=== PATIENT | male | born 1945 | race Caucasian/White ===

== ENCOUNTER 2021-06-19 14:34 | Inpatient (IN) | payer OTHER, MEDICARE ==
[2021-06-19 15:27] VITALS: BMI 22.1
[2021-06-19] MEDS ORDERED: ACETAMINOPHEN 1000 MG/100 ML BAG IVPB ONE (16:28)
[2021-06-19 16:53] LABS: BASO % 0.1 % (0-2.0); HEMOGLOBIN 11.6 GM/dL (11.7-16.9); LYMPH % 10.8 % (8-40); MCH 31.6 pg (25.7-33.7); MEAN CELL VOLUME 92.8 fl (80-96); MEAN PLT VOLUME 7.6 fl (7.5-11.1); MONO % 9.9 % (3.8-10.2); NEUT % 79.2 % (42.8-82.8); PLATELET COUNT 178 10^3/uL (134-434); RBC 3.67 M/mm3 (4.00-5.60); RDW 17.9 % (11.9-15.9); WHITE BLOOD COUNT 11.4 K/mm3 (4.0-10.0)
[2021-06-19 17:16] LABS: CALCIUM 9.4 mg/dL (8.5-10.1)
[2021-06-19 17:17] LABS: BLOOD UREA NITROGEN 24.1 mg/dL (7-18); MAGNESIUM 1.7 mg/dL (1.8-2.4)
[2021-06-19 17:20] LABS: CREATININE 0.9 mg/dL (0.55-1.3)
[2021-06-19 17:21] LABS: BILIRUBIN,TOTAL 1.6 mg/dL (0.2-1); TOT PROT 6.8 g/dl (6.4-8.2)
[2021-06-19] MEDS ORDERED: LACTATED RINGERS SOLUTION 1,000 ML/1,000 ML INFUS.BAG IV STA (17:33)
[2021-06-19 17:50] LABS: N-TERMINAL BNP 3266.6 pg/ml (5-125)
[2021-06-19] MEDS ORDERED: MAGNESIUM SULF 50% (8.12 MEQ/2 ML-1 GM VIAL) IVPB ONE (18:05)
[2021-06-19] MEDS ORDERED: morphine CARPU-JECT 2 MG/1 ML DISP.SYRIN IVPUSH ONE (18:07)
[2021-06-19] MEDS ORDERED: LACTATED RINGERS SOLUTION 1,000 ML/1,000 ML INFUS.BAG IV SCH (18:15)
[2021-06-19] MEDS ORDERED: MAGNESIUM 1GM/D5W - 1 GM/100 ML IVPB IVPB ONE (18:18)
[2021-06-19] MEDS ORDERED: LIDOCAINE HCL 2% JELLY 10 ML CARTRIDGE ONE ×2 (20:57→21:34)
[2021-06-19 22:15] LABS: EPI CELLS 6 /uL (0-25.1); HYALINE CASTS 1 /uL (0-3.1); PH,URINE 5.5 (5.0-8.0); URINE APPEARANCE CLEAR; URINE BACTERIA 4 /uL (0-1359); URINE BILIRUBIN NEGATIVE (NEGATIVE); URINE COLOR YELLOW; URINE GLUCOSE (UA) NEGATIVE (NEGATIVE); URINE KETONE 1+ (NEGATIVE); URINE LEUK ESTERASE TRACE (NEGATIVE); URINE NITRITE NEGATIVE (NEGATIVE); URINE PROTEIN NEGATIVE (NEGATIVE); URINE RBC 13 /uL (0-23.9); URINE UROBILINOGEN 0.2 mg/dL (0.2-1.0); URINE WBC 12 /uL (0-25.8)
[2021-06-19] MEDS ORDERED: SODIUM CHLORIDE 1,000 ML IV SCH (22:45)
[2021-06-19] MEDS: morphine SULFATE 4 MG/ML VIAL IVPUSH PRN (23:15)
[2021-06-19] MEDS: THIAMINE HCL 200 MG/2 ML VIAL IVPB SCH (23:19)
[2021-06-20] MEDS: oxyCODONE HCL 5 MG TABLET PO PRN ×2 (02:00→10:03)
[2021-06-20] MEDS: morphine SULFATE 4 MG/ML VIAL IVPUSH PRN ×2 (05:25→12:10)
[2021-06-20] MEDS: THIAMINE HCL 200 MG/2 ML VIAL IVPB SCH ×2 (05:27→15:23)
[2021-06-20 08:43] LABS: INR 1.1 (0.83-1.09); PROTHROMBIN TIME (PATIENT) 12.7 SEC (9.7-13.0)
[2021-06-20 08:46] LABS: ACTIVATED PTT 27.9 SECONDS (25.2-36.5)
[2021-06-20 08:53] LABS: BASO % 0.1 % (0-2.0); CALCIUM 8.3 mg/dL (8.5-10.1); HEMATOCRIT 27.1 % (35.4-49); HEMOGLOBIN 9.5 GM/dL (11.7-16.9); LYMPH % 19.5 % (8-40); MCH 32.7 pg (25.7-33.7); MCHC 35.2 g/dl (32.0-35.9); MEAN PLT VOLUME 7.4 fl (7.5-11.1); MONO % 15.3 % (3.8-10.2); NEUT % 65.1 % (42.8-82.8); PLATELET COUNT 115 10^3/uL (134-434); RBC 2.91 M/mm3 (4.00-5.60); RDW 17.3 % (11.9-15.9)
[2021-06-20 08:54] LABS: BLOOD UREA NITROGEN 17.2 mg/dL (7-18); MAGNESIUM 1.7 mg/dL (1.8-2.4)
[2021-06-20 08:56] LABS: PHOSPHOROUS 2.2 mg/dL (2.5-4.9)
[2021-06-20 08:57] LABS: CREATININE 0.6 mg/dL (0.55-1.3)
[2021-06-20 08:58] LABS: BILIRUBIN,TOTAL 1.2 mg/dL (0.2-1); TOT PROT 5.1 g/dl (6.4-8.2)
[2021-06-20 09:00] LABS: LDH 323 U/L (87-246)
[2021-06-20 09:31] LABS: ALBUMIN 2.9 g/dl (3.4-5.0)
[2021-06-20] MEDS ORDERED: CYANOCOBALAMIN (VITAMIN B-12) 100 MCG TABLET PO SCH (10:00)
[2021-06-20] MEDS ORDERED: MULTIVITAMINS (DAILY MVI) TABLET (FP) PO SCH (10:00)
[2021-06-20] MEDS ORDERED: PANTOPRAZOLE 40 MG TABLET PO SCH (10:00)
[2021-06-20] MEDS ORDERED: LIDOCAINE 5% TOPICAL PATCH TP SCH (10:00)
[2021-06-20] MEDS ORDERED: FOLIC ACID 1 MG TABLET (FP) PO SCH (10:00)
[2021-06-20] MEDS ORDERED: oxyCODONE HCL 5 MG TABLET PO PRN (11:44)
[2021-06-20] MEDS ORDERED: MAGNESIUM SULF 50% (8.12 MEQ/2 ML-1 GM VIAL) IVPB ONE (12:16)
[2021-06-20] MEDS ORDERED: POTASSIUM PHOSPHATE 30 MM in SODIUM CHLORIDE 500 ML IVPB ONE ×2 (12:17→20:50)
[2021-06-20] MEDS ORDERED: PATIENT'S OWN MEDICATION (NON-FORMULARY) (Fluticasone Propionate [Flovent Diskus] 50 MCG B IH SCH (12:45)
[2021-06-20] MEDS ORDERED: PATIENT'S OWN MEDICATION (NON-FORMULARY) (Mirabegron [Myrbetriq] 25 MG Tab.Er.24h) PO SCH (12:45)
[2021-06-20] MEDS ORDERED: TAMSULOSIN HCL 0.4 MG CAP PO SCH (12:45)
[2021-06-20] MEDS ORDERED: PATIENT'S OWN MEDICATION (NON-FORMULARY) (Losartan/Hydrochlorothiazide [Losartan-Hctz 100- PO SCH (12:45)
[2021-06-20] MEDS ORDERED: PATIENT'S OWN MEDICATION (NON-FORMULARY) (Omeprazole [Omeprazole] 20 MG Tablet.Dr) PO SCH (12:45)
[2021-06-20] MEDS ORDERED: NEBIVOLOL 10 MG TABLET (FP) PO SCH (12:45)
[2021-06-20] MEDS ORDERED: LOSARTAN POTASSIUM 100 MG TABLET PO SCH (14:30)
[2021-06-20] MEDS ORDERED: LOSARTAN POTASSIUM 50 MG TABLET PO SCH (14:30)
[2021-06-20] MEDS ORDERED: HYDROCHLOROTHIAZIDE 12.5 MG CAPSULE (FP) PO SCH (14:30)
[2021-06-20] MEDS ORDERED: TRANEXAMIC ACID 1000 MG/10 ML VIAL ONE (14:50)
[2021-06-20] MEDS ORDERED: PROPOFOL 20 ML ONE ×3 (15:18→18:08)
[2021-06-20] MEDS ORDERED: MIDAZOLAM HCL 2 MG/2 ML SINGLE DOSE VIAL ONE ×2 (15:18→15:34)
[2021-06-20] MEDS ORDERED: BUPIVACAINE HCL/PF 0.5% (5MG/ML) 10 ML VIAL ONE (15:20)
[2021-06-20] MEDS ORDERED: ceFAZolin 2 GRAM PREMIX BAG IVPB ONE (16:35)
[2021-06-20] MEDS ORDERED: ceFAZolin SODIUM 1 GM VIAL ONE (16:36)
[2021-06-20] MEDS ORDERED: TRANEXAMIC ACID 1000 MG/10 ML VIAL IVPB ONE (16:40)
[2021-06-20] MEDS ORDERED: VANCOMYCIN 1,000 MG VIAL (RESTRICTED TO ID ONLY) ONE ×2 (18:07→18:13)
[2021-06-20] MEDS ORDERED: LACTATED RINGERS SOLUTION 1,000 ML/1,000 ML INFUS.BAG IV SCH (19:06)
[2021-06-20] MEDS ORDERED: SODIUM CHLORIDE 1,000 ML IV SCH (19:06)
[2021-06-20] MEDS ORDERED: hydrALAZINE HCL 20 MG/ML VIAL ONE (19:51)
[2021-06-20] MEDS ORDERED: hydrALAZINE HCL 20 MG/ML VIAL IVPUSH ONE ×2 (19:53→21:58)
[2021-06-20] MEDS: QUEtiapine FUMARATE 200 MG TABLET PO SCH (21:03)
[2021-06-20] MEDS ORDERED: ONDANSETRON 4 MG/2 ML VIAL IVPUSH PRN (21:57)
[2021-06-20] MEDS ORDERED: LIDOCAINE PATCH REMOVAL MC SCH (22:00)
[2021-06-20] MEDS ORDERED: QUEtiapine FUMARATE 200 MG TABLET PO SCH (22:00)
[2021-06-20] MEDS ORDERED: THIAMINE HCL 200 MG/2 ML VIAL IVPB SCH (22:00)
[2021-06-20] MEDS: LIDOCAINE PATCH REMOVAL MC SCH (23:24)
[2021-06-21] MEDS: CEFAZOLIN 2 GM in SODIUM CHLORIDE 100 ML IVPB SCH ×4 (00:26→23:14)
[2021-06-21] MEDS ORDERED: PATIENT'S OWN MEDICATION (NON-FORMULARY) (Vortioxetine Hydrobromide [Trintellix] 5 MG Tabl PO SCH (07:00)
[2021-06-21] MEDS ORDERED: PATIENT'S OWN MEDICATION (NON-FORMULARY) (Vortioxetine Hydrobromide [Trintellix] 10 MG) PO SCH (07:00)
[2021-06-21] MEDS: TAMSULOSIN HCL 0.4 MG CAP PO SCH (09:10)
[2021-06-21] MEDS: FOLIC ACID 1 MG TABLET (FP) PO SCH (09:10)
[2021-06-21] MEDS: LOSARTAN POTASSIUM 50 MG TABLET PO SCH (09:10)
[2021-06-21] MEDS: MULTIVITAMINS (DAILY MVI) TABLET (FP) PO SCH (09:11)
[2021-06-21] MEDS: CYANOCOBALAMIN (VITAMIN B-12) 100 MCG TABLET PO SCH (09:11)
[2021-06-21] MEDS: oxyCODONE HCL 5 MG TABLET PO PRN (09:11)
[2021-06-21] MEDS: NEBIVOLOL 10 MG TABLET (FP) PO SCH (09:11)
[2021-06-21] MEDS: PANTOPRAZOLE 40 MG TABLET PO SCH (09:11)
[2021-06-21] MEDS: amLODIPine BESYLATE 5 MG TABLET (FP) PO SCH (09:13)
[2021-06-21] MEDS: LIDOCAINE 5% TOPICAL PATCH TP SCH (09:14)
[2021-06-21 09:56] LABS: HEMATOCRIT 26.9 % (35.4-49); HEMOGLOBIN 9.1 GM/dL (11.7-16.9); MCH 31.5 pg (25.7-33.7); MEAN CELL VOLUME 92.6 fl (80-96); MEAN PLT VOLUME 7.7 fl (7.5-11.1); PLATELET COUNT 114 10^3/uL (134-434); RBC 2.91 M/mm3 (4.00-5.60); WHITE BLOOD COUNT 6.4 K/mm3 (4.0-10.0)
[2021-06-21] MEDS ORDERED: PATIENT'S OWN MEDICATION (NON-FORMULARY) (Fluticasone Propionate [Flovent Diskus] 50 MCG) IH SCH (10:00)
[2021-06-21] MEDS ORDERED: PATIENT'S OWN MEDICATION (NON-FORMULARY) (Mirabegron [Myrbetriq] 25 MG) PO SCH (10:00)
[2021-06-21] MEDS ORDERED: HYDROCHLOROTHIAZIDE 12.5 MG CAPSULE (FP) PO SCH (10:00)
[2021-06-21 10:15] LABS: BLOOD UREA NITROGEN 12.2 mg/dL (7-18)
[2021-06-21 10:16] LABS: ALBUMIN 2.6 g/dl (3.4-5.0); CALCIUM 7.6 mg/dL (8.5-10.1); MAGNESIUM 1.6 mg/dL (1.8-2.4)
[2021-06-21 10:18] LABS: CREATININE 0.6 mg/dL (0.55-1.3); PHOSPHOROUS 2.6 mg/dL (2.5-4.9)
[2021-06-21 10:19] LABS: BILIRUBIN,TOTAL 1.3 mg/dL (0.2-1); TOT PROT 4.7 g/dl (6.4-8.2)
[2021-06-21] MEDS ORDERED: ACETAMINOPHEN 325 MG TABLET (FP) PO PRN (10:42)
[2021-06-21] MEDS ORDERED: MAGNESIUM SULF 50% (8.12 MEQ/2 ML-1 GM VIAL) IVPB ONE (13:37)
[2021-06-21] MEDS ORDERED: DOCUSATE SODIUM 100 MG CAPSULE (FP) PO PRN (16:41)
[2021-06-21] MEDS: ENOXAPARIN NA (PORCINE) 40 MG/0.4 ML DISP.SYRIN SQ SCH (18:56)
[2021-06-21] MEDS: QUEtiapine FUMARATE 200 MG TABLET PO SCH (22:16)
[2021-06-21] MEDS: LIDOCAINE PATCH REMOVAL MC SCH (22:30)
[2021-06-22] MEDS: oxyCODONE HCL 5 MG TABLET PO PRN ×3 (08:47→22:13)
[2021-06-22] MEDS: amLODIPine BESYLATE 5 MG TABLET (FP) PO SCH (09:02)
[2021-06-22] MEDS: NEBIVOLOL 10 MG TABLET (FP) PO SCH ×2 (09:02→22:11)
[2021-06-22] MEDS: TAMSULOSIN HCL 0.4 MG CAP PO SCH (09:03)
[2021-06-22] MEDS: PANTOPRAZOLE 40 MG TABLET PO SCH (09:03)
[2021-06-22] MEDS: LOSARTAN POTASSIUM 50 MG TABLET PO SCH ×2 (09:03→22:12)
[2021-06-22] MEDS: MULTIVITAMINS (DAILY MVI) TABLET (FP) PO SCH (09:03)
[2021-06-22] MEDS: ENOXAPARIN NA (PORCINE) 40 MG/0.4 ML DISP.SYRIN SQ SCH (09:03)
[2021-06-22] MEDS: CYANOCOBALAMIN (VITAMIN B-12) 100 MCG TABLET PO SCH (09:03)
[2021-06-22] MEDS: FOLIC ACID 1 MG TABLET (FP) PO SCH (09:04)
[2021-06-22] MEDS: LIDOCAINE 5% TOPICAL PATCH TP SCH (09:04)
[2021-06-22 09:14] LABS: HEMATOCRIT 26.2 % (35.4-49); HEMOGLOBIN 9.1 GM/dL (11.7-16.9); MCH 32.1 pg (25.7-33.7); MCHC 34.8 g/dl (32.0-35.9); MEAN CELL VOLUME 92.1 fl (80-96); MEAN PLT VOLUME 7.2 fl (7.5-11.1); PLATELET COUNT 111 10^3/uL (134-434); RBC 2.84 M/mm3 (4.00-5.60); RDW 17.7 % (11.9-15.9); WHITE BLOOD COUNT 7.1 K/mm3 (4.0-10.0)
[2021-06-22 09:29] LABS: ALBUMIN 2.2 g/dl (3.4-5.0); BLOOD UREA NITROGEN 7.9 mg/dL (7-18); CALCIUM 7.7 mg/dL (8.5-10.1); MAGNESIUM 1.7 mg/dL (1.8-2.4)
[2021-06-22 09:32] LABS: CREATININE 0.6 mg/dL (0.55-1.3)
[2021-06-22 09:34] LABS: BILIRUBIN,TOTAL 1.1 mg/dL (0.2-1); TOT PROT 4.5 g/dl (6.4-8.2)
[2021-06-22] MEDS ORDERED: THIAMINE HCL 200 MG/2 ML VIAL IVPB SCH (10:00)
[2021-06-22] MEDS ORDERED: MAGNESIUM 2GM/50ML STERILE WATER IVPB IVPB ONE (10:30)
[2021-06-22] MEDS: THIAMINE HCL 200 MG/2 ML VIAL IVPB SCH (10:36)
[2021-06-22] MEDS: POTASSIUM CHLORIDE TABS 20 MEQ TABLET.ER (FP) PO SCH (10:43)
[2021-06-22] MEDS ORDERED: POTASSIUM CHLORIDE 40 MEQ in SODIUM CHLORIDE 500 ML IV SCH (12:00)
[2021-06-22] MEDS: PATIENT'S OWN MEDICATION (NON-FORMULARY) (Vortioxetine Hydrobromide [Trintellix] 5 MG Tabl PO SCH (13:55)
[2021-06-22] MEDS ORDERED: BUPRENORPHINE TP SCH (14:00)
[2021-06-22] MEDS ORDERED: [UNRECOGNIZED DRUG - OTHER] TP SCH (14:00)
[2021-06-22] MEDS ORDERED: ACETAMINOPHEN 325 MG TABLET (FP) PO PRN (14:57)
[2021-06-22] MEDS: QUEtiapine FUMARATE 200 MG TABLET PO SCH (22:11)
[2021-06-22] MEDS: LIDOCAINE PATCH REMOVAL MC SCH (22:12)
[2021-06-22] MEDS ORDERED: clonazePAM 0.5 MG TABLET PO ONE (22:36)
[2021-06-23] MEDS: amLODIPine BESYLATE 5 MG TABLET (FP) PO SCH (06:24)
[2021-06-23 09:33] LABS: BASO % 0.3 % (0-2.0); EOS % 3.1 % (0-4.5); HEMATOCRIT 26.8 % (35.4-49); HEMOGLOBIN 9.1 GM/dL (11.7-16.9); LYMPH % 24.8 % (8-40); MCH 31.9 pg (25.7-33.7); MEAN CELL VOLUME 93.9 fl (80-96); MEAN PLT VOLUME 7.7 fl (7.5-11.1); MONO % 17.1 % (3.8-10.2); NEUT % 54.7 % (42.8-82.8); PLATELET COUNT 136 10^3/uL (134-434); RBC 2.85 M/mm3 (4.00-5.60); RDW 17.5 % (11.9-15.9); WHITE BLOOD COUNT 5.7 K/mm3 (4.0-10.0)
[2021-06-23] MEDS: oxyCODONE HCL 5 MG TABLET PO PRN ×2 (09:52→15:33)
[2021-06-23 09:53] LABS: ALBUMIN 2.2 g/dl (3.4-5.0); CALCIUM 7.8 mg/dL (8.5-10.1)
[2021-06-23] MEDS: PATIENT'S OWN MEDICATION (NON-FORMULARY) (Vortioxetine Hydrobromide [Trintellix] 5 MG Tabl PO SCH (09:53)
[2021-06-23] MEDS: LIDOCAINE 5% TOPICAL PATCH TP SCH (09:54)
[2021-06-23 09:55] LABS: BLOOD UREA NITROGEN 10.5 mg/dL (7-18); MAGNESIUM 1.8 mg/dL (1.8-2.4)
[2021-06-23] MEDS: CYANOCOBALAMIN (VITAMIN B-12) 100 MCG TABLET PO SCH (09:55)
[2021-06-23] MEDS: MULTIVITAMINS (DAILY MVI) TABLET (FP) PO SCH (09:55)
[2021-06-23] MEDS: FOLIC ACID 1 MG TABLET (FP) PO SCH (09:55)
[2021-06-23] MEDS: POTASSIUM CHLORIDE TABS 20 MEQ TABLET.ER (FP) PO SCH (09:55)
[2021-06-23] MEDS: PANTOPRAZOLE 40 MG TABLET PO SCH (09:55)
[2021-06-23] MEDS: TAMSULOSIN HCL 0.4 MG CAP PO SCH (09:55)
[2021-06-23 09:56] LABS: PHOSPHOROUS 1.6 mg/dL (2.5-4.9)
[2021-06-23 09:57] LABS: CREATININE 0.6 mg/dL (0.55-1.3)
[2021-06-23 09:59] LABS: BILIRUBIN,TOTAL 1.1 mg/dL (0.2-1); TOT PROT 4.6 g/dl (6.4-8.2)
[2021-06-23] MEDS: ENOXAPARIN NA (PORCINE) 40 MG/0.4 ML DISP.SYRIN SQ SCH (10:16)
[2021-06-23] MEDS: THIAMINE HCL 200 MG/2 ML VIAL IVPB SCH (10:17)
[2021-06-23] MEDS ORDERED: SODIUM PHOSPHATE - 45 MM in SODIUM CHLORIDE 500 ML IVPB ONE (11:15)
[2021-06-23] MEDS ORDERED: CYCLOBENZAPRINE HCL 10 MG TABLET (FP) PO PRN (11:50)
[2021-06-23] MEDS: LIDOCAINE PATCH REMOVAL MC SCH (21:26)
[2021-06-23] MEDS: NEBIVOLOL 10 MG TABLET (FP) PO SCH (21:26)
[2021-06-23] MEDS: LOSARTAN POTASSIUM 50 MG TABLET PO SCH (21:26)
[2021-06-23] MEDS: QUEtiapine FUMARATE 200 MG TABLET PO SCH (21:26)
[2021-06-24] MEDS: amLODIPine BESYLATE 5 MG TABLET (FP) PO SCH (06:12)
[2021-06-24] MEDS: LIDOCAINE 5% TOPICAL PATCH TP SCH (09:57)
[2021-06-24] MEDS: CYANOCOBALAMIN (VITAMIN B-12) 100 MCG TABLET PO SCH (09:58)
[2021-06-24] MEDS: THIAMINE HCL 200 MG/2 ML VIAL IVPB SCH (09:58)
[2021-06-24] MEDS: FOLIC ACID 1 MG TABLET (FP) PO SCH (09:58)
[2021-06-24] MEDS: TAMSULOSIN HCL 0.4 MG CAP PO SCH (09:58)
[2021-06-24] MEDS: MULTIVITAMINS (DAILY MVI) TABLET (FP) PO SCH (09:58)
[2021-06-24] MEDS: PANTOPRAZOLE 40 MG TABLET PO SCH (09:58)
[2021-06-24] MEDS: POTASSIUM CHLORIDE TABS 20 MEQ TABLET.ER (FP) PO SCH (10:07)
[2021-06-24] MEDS: ENOXAPARIN NA (PORCINE) 40 MG/0.4 ML DISP.SYRIN SQ SCH (10:08)
[2021-06-24] MEDS: PATIENT'S OWN MEDICATION (NON-FORMULARY) (Vortioxetine Hydrobromide [Trintellix] 5 MG Tabl PO SCH (10:08)
[2021-06-24 10:18] LABS: HEMATOCRIT 24.5 % (35.4-49); HEMOGLOBIN 8.3 GM/dL (11.7-16.9); MCH 31.9 pg (25.7-33.7); MCHC 33.9 g/dl (32.0-35.9); MEAN PLT VOLUME 7.5 fl (7.5-11.1); PLATELET COUNT 167 10^3/uL (134-434); RBC 2.61 M/mm3 (4.00-5.60); RDW 17.2 % (11.9-15.9); WHITE BLOOD COUNT 4.9 K/mm3 (4.0-10.0)
[2021-06-24 10:44] LABS: ALBUMIN 1.9 g/dl (3.4-5.0); BLOOD UREA NITROGEN 11.8 mg/dL (7-18); CALCIUM 7.6 mg/dL (8.5-10.1); MAGNESIUM 1.7 mg/dL (1.8-2.4)
[2021-06-24 10:47] LABS: CREATININE 0.7 mg/dL (0.55-1.3); PHOSPHOROUS 2.6 mg/dL (2.5-4.9)
[2021-06-24 10:49] LABS: BILIRUBIN,TOTAL 0.8 mg/dL (0.2-1); TOT PROT 4.2 g/dl (6.4-8.2)
[2021-06-24] MEDS: oxyCODONE HCL 5 MG TABLET PO PRN ×3 (11:40→21:35)
[2021-06-24] MEDS ORDERED: oxyCODONE HCL 5 MG TABLET PO PRN ×2 (11:40→16:07)
[2021-06-24] MEDS ORDERED: MAGNESIUM OXIDE 400 MG TABLET (FP) PO ONE (15:47)
[2021-06-24] MEDS ORDERED: MAGNESIUM SULF 50% (8.12 MEQ/2 ML-1 GM VIAL) IVPB ONE (17:55)
[2021-06-24] MEDS: QUEtiapine FUMARATE 200 MG TABLET PO SCH (21:36)
[2021-06-24] MEDS: LIDOCAINE PATCH REMOVAL MC SCH (21:36)
[2021-06-24] MEDS: NEBIVOLOL 10 MG TABLET (FP) PO SCH (21:36)
[2021-06-24] MEDS: LOSARTAN POTASSIUM 50 MG TABLET PO SCH (21:36)
[2021-06-25] MEDS: oxyCODONE HCL 5 MG TABLET PO PRN ×3 (06:13→18:06)
[2021-06-25] MEDS: amLODIPine BESYLATE 5 MG TABLET (FP) PO SCH (06:14)
[2021-06-25] MEDS: THIAMINE HCL 200 MG/2 ML VIAL IVPB SCH (10:07)
[2021-06-25] MEDS: MULTIVITAMINS (DAILY MVI) TABLET (FP) PO SCH (10:10)
[2021-06-25] MEDS: PANTOPRAZOLE 40 MG TABLET PO SCH (10:10)
[2021-06-25] MEDS: TAMSULOSIN HCL 0.4 MG CAP PO SCH (10:10)
[2021-06-25] MEDS: CYANOCOBALAMIN (VITAMIN B-12) 100 MCG TABLET PO SCH (10:10)
[2021-06-25] MEDS: FOLIC ACID 1 MG TABLET (FP) PO SCH (10:10)
[2021-06-25] MEDS: LIDOCAINE 5% TOPICAL PATCH TP SCH (10:11)
[2021-06-25] MEDS: ENOXAPARIN NA (PORCINE) 40 MG/0.4 ML DISP.SYRIN SQ SCH (10:11)
[2021-06-25] MEDS: PATIENT'S OWN MEDICATION (NON-FORMULARY) (Vortioxetine Hydrobromide [Trintellix] 5 MG Tabl PO SCH (10:14)
[2021-06-25 12:08] LABS: SARS-CoV-2 NAA Not Detected (Not Detected)
[2021-06-25 12:37] LABS: HEMATOCRIT 25.6 % (35.4-49); HEMOGLOBIN 8.7 GM/dL (11.7-16.9); MCH 31.8 pg (25.7-33.7); MCHC 33.8 g/dl (32.0-35.9); MEAN PLT VOLUME 7.4 fl (7.5-11.1); PLATELET COUNT 220 10^3/uL (134-434); RBC 2.72 M/mm3 (4.00-5.60); WHITE BLOOD COUNT 4.9 K/mm3 (4.0-10.0)
[2021-06-25 12:56] LABS: BLOOD UREA NITROGEN 14.4 mg/dL (7-18); MAGNESIUM 1.8 mg/dL (1.8-2.4)
[2021-06-25 12:59] LABS: CREATININE 0.7 mg/dL (0.55-1.3)
[2021-06-25] MEDS: NEBIVOLOL 10 MG TABLET (FP) PO SCH (22:06)
[2021-06-25] MEDS: LOSARTAN POTASSIUM 50 MG TABLET PO SCH (22:06)
[2021-06-25] MEDS: QUEtiapine FUMARATE 200 MG TABLET PO SCH (22:06)
[2021-06-25] MEDS: LIDOCAINE PATCH REMOVAL MC SCH (22:12)
[2021-06-26] MEDS: oxyCODONE HCL 5 MG TABLET PO PRN ×2 (03:16→08:55)
[2021-06-26 03:31] VITALS: BP 128/71; PULSE 86; TEMP 99.7
[2021-06-26] MEDS: amLODIPine BESYLATE 5 MG TABLET (FP) PO SCH (07:00)
[2021-06-26] MEDS: TAMSULOSIN HCL 0.4 MG CAP PO SCH (08:59)
== END 2021-06-26 11:15 | DRG 521 ==
LOC: JER 14:34 → JERBED 18:24 → J6S 22:30
PROVIDERS: ADMIT Internal Medicine; ATTEND Internal Medicine
PROC: 0SRR0J9 Replacement of Right Hip Joint, Femoral Surface with Synthetic Substitute, Cemented, Open Approach (ICD-10-PCS; principal; 2021-06-20 13:30)
DX: S72.001A Fracture of unspecified part of neck of right femur, initial encounter for closed fracture (principal); G93.5 Compression of brain; M62.82 Rhabdomyolysis; E51.2 Wernicke's encephalopathy; E87.1 Hypo-osmolality and hyponatremia; F11.20 Opioid dependence, uncomplicated; S40.021A Contusion of right upper arm, initial encounter; I10 Essential (primary) hypertension; M54.50 Low back pain, unspecified; R91.1 Solitary pulmonary nodule; F10.10 Alcohol abuse, uncomplicated; N40.0 Benign prostatic hyperplasia without lower urinary tract symptoms; D64.9 Anemia, unspecified; R74.01 Elevation of levels of liver transaminase levels; K70.10 Alcoholic hepatitis without ascites; W18.39XA Other fall on same level, initial encounter; Y92.098 Other place in other non-institutional residence as the place of occurrence of the external cause; E83.42 Hypomagnesemia; E87.6 Hypokalemia; E83.39 Other disorders of phosphorus metabolism
CPT/HCPCS: 36415; 36430; 70450-TC; 71045-TC-FY; 72125-TC; 72128-TC; 72131-TC; 72170-TC-FY; 73070-TC-LT-FY; 73130-TC-RT-FY; 73502-TC-RT-FY; 80048; 80053; 81003; 82248; 82550; 82553; 82607; 83010; 83615; 83735; 83880; 84100; 84443; 84484; 85025; 85027; 85045; 85610; 85730; 86850; 86900; 86901; 86922; 87086; 88305-TC; 88311-TC; 93005; 93010; 94010; 94760; 97116-GP; 97162-GP; 99285-25; C9803; P9058; U0003; U0005

== ENCOUNTER 2023-12-29 11:54 | Inpatient (IN) | payer OTHER, MEDICARE ==
[2023-12-29 13:11] VITALS: BMI 22.5
[2023-12-29] MEDS ORDERED: ACETAMINOPHEN INJECTION 100 ML ONE (15:10)
[2023-12-29] MEDS ORDERED: LIDOCAINE 4% PATCH TP ONE (15:10)
[2023-12-29] MEDS: LIDOCAINE 4% PATCH TP ONE (15:33)
[2023-12-29] MEDS: ACETAMINOPHEN 1000 MG/100 ML BAG IVPB ONE (15:34)
[2023-12-29 15:39] LABS: BASO % 0.2 % (0-2.0); HEMATOCRIT 34.3 % (35.4-49); HEMOGLOBIN 11.7 GM/dL (11.7-16.9); LYMPH % 23.4 % (8-40); MCH 32.7 pg (25.7-33.7); MCHC 34.1 g/dl (32.0-35.9); MEAN CELL VOLUME 95.9 fl (80-96); MEAN PLT VOLUME 6.3 fl (7.5-11.1); NEUT % 67.4 % (42.8-82.8); PLATELET COUNT 144 10^3/uL (134-434); RBC 3.57 M/mm3 (4.00-5.60); WHITE BLOOD COUNT 5.1 K/mm3 (4.0-10.0)
[2023-12-29 15:46] LABS: PROTHROMBIN TIME (PATIENT) 11.3 SEC (9.7-13.0)
[2023-12-29 15:48] LABS: ACTIVATED PTT 36.2 SECONDS (25.2-36.5)
[2023-12-29 16:03] LABS: POTASSIUM 4.1 mmol/L (3.5-5.1)
[2023-12-29 16:05] LABS: ALBUMIN 3.5 g/dl (3.4-5.0); CALCIUM 8.6 mg/dL (8.5-10.1)
[2023-12-29 16:06] LABS: BLOOD UREA NITROGEN 13.3 mg/dL (7-18)
[2023-12-29 16:10] LABS: BILIRUBIN,TOTAL 0.5 mg/dL (0.2-1); TOT PROT 6.2 g/dl (6.4-8.2)
[2023-12-29] MEDS ORDERED: morphine SULFATE 4 MG/ML VIAL ONE ×2 (17:35→21:08)
[2023-12-29] MEDS: morphine CARPU-JECT 4 MG/1 ML DISP.SYRIN IVPUSH ONE ×2 (17:42→21:17)
[2023-12-29] MEDS: oxyCODONE HCL 5 MG TABLET PO ONE (18:09)
[2023-12-29] MEDS: KETOROLAC TROMETHAMINE 15 MG/ML VIAL IVPUSH ONE (18:09)
[2023-12-29 19:18] LABS: PH,URINE 7.5 (5.0-8.0); URINE APPEARANCE CLEAR; URINE BILIRUBIN NEGATIVE (NEGATIVE); URINE COLOR YELLOW; URINE GLUCOSE (UA) NEGATIVE (NEGATIVE); URINE KETONE NEGATIVE (NEGATIVE); URINE LEUK ESTERASE NEGATIVE (NEGATIVE); URINE NITRITE NEGATIVE (NEGATIVE); URINE PROTEIN NEGATIVE (NEGATIVE); URINE UROBILINOGEN 0.2 mg/dL (0.2-1.0)
[2023-12-29] MEDS: LIDOCAINE PATCH REMOVAL MC SCH (22:17)
[2023-12-29] MEDS ORDERED: ACETAMINOPHEN 1000 MG/100 ML BAG IVPB PRN (22:42)
[2023-12-29] MEDS ORDERED: morphine CARPU-JECT 2 MG/1 ML DISP.SYRIN IVPUSH PRN (22:46)
[2023-12-29] MEDS ORDERED: IBUPROFEN 800 MG/8 ML IJ IVPB PRN (22:48)
[2023-12-30] MEDS ORDERED: SENNOSIDES 8.6MG TABLET (FP) PO PRN (01:11)
[2023-12-30] MEDS ORDERED: LORazepam 1 MG TABLET PO PRN ×2 (01:21→01:28)
[2023-12-30] MEDS: LORazepam 1 MG TABLET PO ONE (01:47)
[2023-12-30] MEDS: LORazepam 1 MG TABLET PO SCH (06:09)
[2023-12-30] MEDS: TAMSULOSIN HCL 0.4 MG CAP PO SCH (08:49)
[2023-12-30] MEDS: CYCLOBENZAPRINE HCL 10 MG TABLET (FP) PO PRN (08:50)
[2023-12-30] MEDS ORDERED: BENZOCAINE/MENTH/CETYLPYRD CL 1 EACH LOZENGE MM PRN (09:28)
[2023-12-30] MEDS: ACETAMINOPHEN 500 MG TABLET (FP) PO SCH (10:28)
[2023-12-30] MEDS: FAMOTIDINE 20 MG TABLET PO SCH (10:29)
[2023-12-30] MEDS: ENOXAPARIN NA (PORCINE) 40 MG/0.4 ML DISP.SYRIN SQ SCH (10:29)
[2023-12-30] MEDS ORDERED: oxyCODONE HCL 5 MG TABLET PO PRN (11:08)
[2023-12-30] MEDS: LOSARTAN 50MG/HCTZ 12.5MG 1 TAB PO SCH (11:11)
[2023-12-30 11:22] LABS: POTASSIUM 4.7 mmol/L (3.5-5.1)
[2023-12-30 11:25] LABS: ALBUMIN 3.2 g/dl (3.4-5.0)
[2023-12-30 11:26] LABS: BLOOD UREA NITROGEN 16.2 mg/dL (7-18); CALCIUM 8.8 mg/dL (8.5-10.1); MAGNESIUM 1.9 mg/dL (1.8-2.4)
[2023-12-30 11:29] LABS: CREATININE 0.8 mg/dL (0.55-1.3)
[2023-12-30 11:31] LABS: BILIRUBIN,TOTAL 1.1 mg/dL (0.2-1)
[2023-12-30 11:46] LABS: BASO % 0.4 % (0-2.0); EOS % 2.1 % (0-4.5); HEMATOCRIT 33.2 % (35.4-49); HEMOGLOBIN 11.3 GM/dL (11.7-16.9); LYMPH % 28.1 % (8-40); MCH 32.9 pg (25.7-33.7); MCHC 34.2 g/dl (32.0-35.9); MEAN CELL VOLUME 96.1 fl (80-96); MONO % 10.9 % (3.8-10.2); NEUT % 58.5 % (42.8-82.8); RBC 3.45 M/mm3 (4.00-5.60); RDW 16.3 % (11.9-15.9)
[2023-12-30 11:48] LABS: WHITE BLOOD COUNT 5.5 K/mm3 (4.0-10.0)
[2023-12-30 12:23] LABS: PLATELET ESTIMATE ADEQUATE
[2023-12-30] MEDS: oxyCODONE HCL 5 MG TABLET PO PRN (13:49)
[2023-12-30] MEDS: PATIENT'S OWN MEDICATION (NON-FORMULARY) (Mirabegron [Myrbetriq] 25 MG Tab.Er.24h) PO SCH (16:00)
[2023-12-30] MEDS ORDERED: PATIENT'S OWN MEDICATION (NON-FORMULARY) (Fluticasone Propionate [Flovent Diskus] 50 MCG B IH PRN (16:02)
[2023-12-30] MEDS ORDERED: NEBIVOLOL 10 MG TABLET (FP) PO PRN (16:02)
[2023-12-30] MEDS ORDERED: PATIENT'S OWN MEDICATION (NON-FORMULARY) (Alendronate Sodium [Fosamax] 70 MG Tablet) PO SCH (16:15)
[2023-12-30] MEDS: LABETALOL HCL 200 MG TABLET (FP) PO ONE (21:23)
[2023-12-31] MEDS: clonazePAM 0.5 MG TABLET PO PRN (00:19)
[2023-12-31 03:19] VITALS: RESP 18
[2023-12-31] MEDS ORDERED: LORazepam 1 MG TABLET PO SCH (05:00)
[2023-12-31 08:38] LABS: HEMATOCRIT 32.5 % (35.4-49); HEMOGLOBIN 11.1 GM/dL (11.7-16.9); MCH 32.9 pg (25.7-33.7); MEAN CELL VOLUME 96.7 fl (80-96); PLATELET COUNT 141 10^3/uL (134-434); RBC 3.36 M/mm3 (4.00-5.60); RDW 15.8 % (11.9-15.9); WHITE BLOOD COUNT 4.4 K/mm3 (4.0-10.0)
[2023-12-31 09:03] LABS: POTASSIUM 3.7 mmol/L (3.5-5.1)
[2023-12-31 09:05] LABS: CALCIUM 8.4 mg/dL (8.5-10.1)
[2023-12-31 09:06] LABS: ALBUMIN 3.6 g/dl (3.4-5.0); MAGNESIUM 1.7 mg/dL (1.8-2.4)
[2023-12-31] MEDS: FOLIC ACID 1 MG TABLET (FP) PO SCH (09:08)
[2023-12-31] MEDS: LOSARTAN POTASSIUM 50 MG TABLET PO SCH (09:08)
[2023-12-31 09:09] LABS: PHOSPHOROUS 3.3 mg/dL (2.5-4.9)
[2023-12-31] MEDS: CYCLOBENZAPRINE HCL 10 MG TABLET (FP) PO PRN (09:10)
[2023-12-31] MEDS: THIAMINE 100 MG TABLET PO SCH (09:10)
[2023-12-31 09:11] LABS: TOT PROT 6.2 g/dl (6.4-8.2)
[2023-12-31] MEDS ORDERED: hydrALAZINE HCL 20 MG/ML VIAL IVPUSH PRN (09:26)
[2023-12-31] MEDS ORDERED: PATIENT'S OWN MEDICATION (NON-FORMULARY) (Losartan/Hydrochlorothiazide [Losartan-Hctz 100- PO SCH (10:00)
[2023-12-31] MEDS ORDERED: HYDROCHLOROTHIAZIDE 12.5 MG CAPSULE (FP) PO SCH (10:00)
[2023-12-31 13:27] VITALS: BP 146/70; PULSE 76; TEMP 97.9
[2023-12-31] MEDS: MAGNESIUM 2GM/50ML STERILE WATER IVPB IVPB ONE (15:15)
[2024-01-01] MEDS ORDERED: LORazepam 0.5 MG TABLET PO PRN ×2
[2024-01-01] MEDS ORDERED: LORazepam 0.5 MG TABLET PO SCH (05:00)
[2024-01-02] MEDS ORDERED: LORazepam 0.5 MG TABLET PO ONE (05:00)
== END 2023-12-31 18:44 | disposition home health service (06) | DRG 536 ==
LOC: JER 11:54 → JERBED 20:51 → OBSVTOIN 22:36 → J6S 12-30 01:42
PROVIDERS: ADMIT Internal Medicine; ATTEND Internal Medicine
DX: S72.114A Nondisplaced fracture of greater trochanter of right femur, initial encounter for closed fracture (principal); E87.1 Hypo-osmolality and hyponatremia; F11.20 Opioid dependence, uncomplicated; F13.20 Sedative, hypnotic or anxiolytic dependence, uncomplicated; N32.81 Overactive bladder; N40.0 Benign prostatic hyperplasia without lower urinary tract symptoms; F10.129 Alcohol abuse with intoxication, unspecified; K21.9 Gastro-esophageal reflux disease without esophagitis; G47.00 Insomnia, unspecified; K76.89 Other specified diseases of liver; R91.1 Solitary pulmonary nodule; M81.0 Age-related osteoporosis without current pathological fracture; Z96.611 Presence of right artificial shoulder joint; Z96.642 Presence of left artificial hip joint; W18.30XA Fall on same level, unspecified, initial encounter; Y93.9 Activity, unspecified; Y92.098 Other place in other non-institutional residence as the place of occurrence of the external cause; Y99.9 Unspecified external cause status
CPT/HCPCS: 36415; 70450-TC; 71045-TC-FY; 71250-TC; 72125-TC; 72170-TC-FY; 72192-TC; 73552-TC-RT-FY; 80053; 80307; 81003; 82570; 83735; 84100; 84300; 84484; 85025; 85027; 85610; 85730; 87086; 93005; 93010; 97116-GP; 97162-GP; 99285-25; G0378; J0131

== ENCOUNTER 2024-02-08 10:35 | Inpatient (IN) | payer OTHER, MEDICARE ==
[2024-02-08 11:26] VITALS: BMI 22.7
[2024-02-08] MEDS ORDERED: ACETAMINOPHEN 325 MG TABLET (FP) ONE (11:42)
[2024-02-08] MEDS: ACETAMINOPHEN 500 MG TABLET (FP) PO ONE (11:53)
[2024-02-08] MEDS ORDERED: HYDROmorphone HCl 2 MG/ML VIAL ONE (20:14)
[2024-02-08] MEDS: HYDROmorphone HCl 2 MG/ML VIAL IVPUSH ONE (20:19)
[2024-02-08 20:41] LABS: BASO % 0.5 % (0-2.0); EOS % 1.1 % (0-4.5); HEMOGLOBIN 10.8 GM/dL (11.7-16.9); LYMPH % 20.9 % (8-40); MCH 33.5 pg (25.7-33.7); MCHC 34.7 g/dl (32.0-35.9); MEAN CELL VOLUME 96.5 fl (80-96); MEAN PLT VOLUME 6.3 fl (7.5-11.1); MONO % 14.2 % (3.8-10.2); NEUT % 63.3 % (42.8-82.8); PLATELET COUNT 135 10^3/uL (134-434); RBC 3.22 M/mm3 (4.00-5.60); RDW 15.1 % (11.9-15.9); WHITE BLOOD COUNT 5.2 K/mm3 (4.0-10.0)
[2024-02-08 21:00] LABS: CHLORIDE 94 mmol/L (98-107); POTASSIUM 4.1 mmol/L (3.5-5.1); SODIUM 132 mmol/L (136-145)
[2024-02-08 21:03] LABS: ALBUMIN 3.4 g/dl (3.4-5.0); ANION GAP 7 mmol/L (4-13); BLOOD UREA NITROGEN 19.6 mg/dL (7-18); CALCIUM 8.3 mg/dL (8.5-10.1); CO2 30 mmol/L (21-32); GLUCOSE,RANDOM 182 mg/dL (74-106)
[2024-02-08 21:07] LABS: BILIRUBIN,TOTAL 1.2 mg/dL (0.2-1); CREATININE 1.1 mg/dL (0.55-1.3); SGOT/AST 38 U/L (15-37); SGPT/ALT 34 U/L (13-61)
[2024-02-08 21:10] LABS: ALK PHOS 116 U/L (45-117)
[2024-02-09] MEDS ORDERED: PATIENT'S OWN MEDICATION (NON-FORMULARY) (Oxycodone Hcl [Oxycodone Hcl] 10 MG Tablet) PO PRN (00:03)
[2024-02-09] MEDS ORDERED: SENNOSIDES 8.6MG TABLET (FP) PO PRN (00:03)
[2024-02-09] MEDS ORDERED: CYCLOBENZAPRINE HCL 10 MG TABLET (FP) PO PRN (00:03)
[2024-02-09] MEDS ORDERED: PATIENT'S OWN MEDICATION (NON-FORMULARY) (Fluticasone Propionate [Flovent Diskus] 50 MCG B IH PRN (00:03)
[2024-02-09] MEDS ORDERED: clonazePAM 0.5 MG ODT TABLETS SL PRN (00:06)
[2024-02-09] MEDS ORDERED: ACETAMINOPHEN 325 MG TABLET (FP) ONE (00:42)
[2024-02-09] MEDS ORDERED: MORPHINE SULFATE 2 MG/ML SYRINGE ONE (00:58)
[2024-02-09] MEDS: MORPHINE SULFATE 2 MG/ML SYRINGE IVPUSH PRN (01:05)
[2024-02-09] MEDS: ACETAMINOPHEN 325 MG TABLET (FP) PO SCH ×3 (01:05→02:02)
[2024-02-09] MEDS ORDERED: PATIENT'S OWN MEDICATION (NON-FORMULARY) (Oxycodone Hcl [Oxycodone Hcl] 10 MG) PO PRN (01:11)
[2024-02-09] MEDS ORDERED: MORPHINE SULFATE 2 MG/ML SYRINGE IVPUSH PRN (01:12)
[2024-02-09 01:45] LABS: EPI CELLS 3 /uL (0-25.1); HYALINE CASTS 0 /uL (0-3.1); URINE APPEARANCE CLEAR; URINE BACTERIA 3 /uL (0-1359); URINE BILIRUBIN NEGATIVE (NEGATIVE); URINE COLOR YELLOW; URINE GLUCOSE (UA) NEGATIVE (NEGATIVE); URINE KETONE NEGATIVE (NEGATIVE); URINE LEUK ESTERASE TRACE (NEGATIVE); URINE NITRITE NEGATIVE (NEGATIVE); URINE PROTEIN NEGATIVE (NEGATIVE); URINE RBC 12 /uL (0-23.9); URINE WBC 24 /uL (0-25.8)
[2024-02-09] MEDS: HYDROmorphone HCL 2 MG TABLET PO PRN (05:42)
[2024-02-09] MEDS: CYCLOBENZAPRINE HCL 10 MG TABLET (FP) PO PRN (05:43)
[2024-02-09] MEDS: PANTOPRAZOLE 40 MG TABLET PO SCH (06:38)
[2024-02-09 09:06] LABS: POTASSIUM 3.9 mmol/L (3.5-5.1)
[2024-02-09 09:08] LABS: ALBUMIN 3.5 g/dl (3.4-5.0); BLOOD UREA NITROGEN 17.7 mg/dL (7-18); CALCIUM 8.3 mg/dL (8.5-10.1); MAGNESIUM 1.5 mg/dL (1.8-2.4)
[2024-02-09 09:09] LABS: HEMOGLOBIN 11.1 GM/dL (11.7-16.9); MCH 33.7 pg (25.7-33.7); MCHC 34.6 g/dl (32.0-35.9); MEAN CELL VOLUME 97.4 fl (80-96); MEAN PLT VOLUME 6.8 fl (7.5-11.1); PLATELET COUNT 132 10^3/uL (134-434); RBC 3.29 M/mm3 (4.00-5.60); RDW 15.4 % (11.9-15.9); WHITE BLOOD COUNT 5.9 K/mm3 (4.0-10.0)
[2024-02-09 09:11] LABS: CREATININE 0.9 mg/dL (0.55-1.3); PHOSPHOROUS 2.6 mg/dL (2.5-4.9)
[2024-02-09 09:13] LABS: BILIRUBIN,TOTAL 1.4 mg/dL (0.2-1); TOT PROT 6.1 g/dl (6.4-8.2)
[2024-02-09] MEDS ORDERED: PATIENT'S OWN MEDICATION (NON-FORMULARY) (Mirabegron [Myrbetriq] 25 MG Tab.Er.24h) PO SCH (10:00)
[2024-02-09] MEDS ORDERED: ENOXAPARIN NA (PORCINE) 40 MG/0.4 ML DISP.SYRIN SQ SCH (10:00)
[2024-02-09] MEDS: LOSARTAN POTASSIUM 50 MG TABLET PO SCH (10:30)
[2024-02-09] MEDS: NEBIVOLOL 10 MG TABLET (FP) PO SCH ×2 (10:31→22:13)
[2024-02-09] MEDS: POLYETHYLENE GLYCOL (HEALTHYLAX) 3350 17 GM PACKET PO SCH (13:27)
[2024-02-09] MEDS: MAGNESIUM SULFATE IN WATER 2 GM/50 ML IVPB IVPB ONE (16:27)
[2024-02-09] MEDS: clonazePAM 0.5 MG TABLET PO PRN (22:14)
[2024-02-10] MEDS: ENOXAPARIN NA (PORCINE) 40 MG/0.4 ML DISP.SYRIN SQ SCH (12:53)
[2024-02-10 16:17] LABS: POTASSIUM 4.3 mmol/L (3.5-5.1)
[2024-02-10 16:21] LABS: CALCIUM 7.8 mg/dL (8.5-10.1)
[2024-02-10 16:22] LABS: ALBUMIN 3.2 g/dl (3.4-5.0); BLOOD UREA NITROGEN 13.3 mg/dL (7-18)
[2024-02-10 16:25] LABS: CREATININE 0.9 mg/dL (0.55-1.3)
[2024-02-10 16:26] LABS: BILIRUBIN,TOTAL 0.8 mg/dL (0.2-1); TOT PROT 5.9 g/dl (6.4-8.2)
[2024-02-11 08:52] LABS: BASO % 0.5 % (0-2.0); EOS % 3.8 % (0-4.5); HEMATOCRIT 32.7 % (35.4-49); HEMOGLOBIN 10.9 GM/dL (11.7-16.9); MCH 33.2 pg (25.7-33.7); MCHC 33.3 g/dl (32.0-35.9); MEAN CELL VOLUME 99.9 fl (80-96); MEAN PLT VOLUME 7.1 fl (7.5-11.1); MONO % 15.3 % (3.8-10.2); NEUT % 51.4 % (42.8-82.8); PLATELET COUNT 164 10^3/uL (134-434); RBC 3.28 M/mm3 (4.00-5.60); RDW 15.3 % (11.9-15.9); WHITE BLOOD COUNT 5.8 K/mm3 (4.0-10.0)
[2024-02-11 09:11] LABS: POTASSIUM 4.3 mmol/L (3.5-5.1)
[2024-02-11 09:13] LABS: CALCIUM 7.8 mg/dL (8.5-10.1)
[2024-02-11 09:14] LABS: BLOOD UREA NITROGEN 13.9 mg/dL (7-18)
[2024-02-11 09:17] LABS: CREATININE 0.9 mg/dL (0.55-1.3)
[2024-02-11] MEDS: TAMSULOSIN HCL 0.4 MG CAP PO SCH (11:15)
[2024-02-11 14:18] VITALS: BP 157/82; PULSE 80; RESP 19; TEMP 97.5
== END 2024-02-11 17:12 | DRG 563 ==
LOC: JER 10:35 → JERBED 23:20 → J7W 02-09 03:46 → OBSVTOIN 02-09 10:26
PROVIDERS: ADMIT Internal Medicine; ATTEND Nurse Practitioner
DX: S82.001A Unspecified fracture of right patella, initial encounter for closed fracture (principal); S82.141A Displaced bicondylar fracture of right tibia, initial encounter for closed fracture; F11.20 Opioid dependence, uncomplicated; E87.1 Hypo-osmolality and hyponatremia; F13.20 Sedative, hypnotic or anxiolytic dependence, uncomplicated; I10 Essential (primary) hypertension; M81.0 Age-related osteoporosis without current pathological fracture; N40.0 Benign prostatic hyperplasia without lower urinary tract symptoms; K76.9 Liver disease, unspecified; E83.42 Hypomagnesemia; W10.9XXA Fall (on) (from) unspecified stairs and steps, initial encounter; Y93.89 Activity, other specified; Y92.009 Unspecified place in unspecified non-institutional (private) residence as the place of occurrence of the external cause; Y99.8 Other external cause status
CPT/HCPCS: 36415; 70450-TC; 71046-TC-FY; 72125-TC; 72170-TC-FY; 73564-TC-RT-FY; 73700-TC-RT; 74170-TC; 76700-TC; 80048; 80053; 80307; 81003; 82105; 82607; 82746; 83735; 84100; 85025; 85027; 86704; 86708; 86803; 86850; 86900; 86901; 87340; 87517; 93005; 93010; 97116-GP; 97162-GP; 99285-25; G0378

== ENCOUNTER 2024-04-29 19:30 | Emergency (ER) | payer OTHER, MEDICARE ==
[2024-04-29 19:57] VITALS: BP 128/60; PULSE 74; RESP 16; TEMP 97.3; BMI 22.7
[2024-04-29] MEDS ORDERED: ACETAMINOPHEN 325 MG TABLET (FP) ONE (20:32)
[2024-04-29] MEDS: ACETAMINOPHEN 500 MG TABLET (FP) PO ONE (20:49)
== END 2024-04-30 00:32 | disposition home or self-care (01) ==
LOC: JER 19:30
DX: S00.93XA Contusion of unspecified part of head, initial encounter (principal); W01.198A Fall on same level from slipping, tripping and stumbling with subsequent striking against other object, initial encounter
CPT/HCPCS: 70450-TC; 70486-TC; 72125-TC; 99284-25